=== PATIENT | male | born 1950 | race Caucasian/White ===

== ENCOUNTER 2022-04-01 10:42 | Outpatient (CLI) | payer MEDICARE, OTHER | END 2022-04-01 10:43 | disposition home or self-care (01) | LOC: CSHULT 10:42 → EDSEX 10:42 → CSHULT 10:43 | PROVIDERS: ATTEND Student in an Organized Health Care Education/Training Program | DX: R31.9 Hematuria, unspecified (principal) | CPT/HCPCS: 76770 ==